=== PATIENT | female | born 1960 | race Caucasian/White ===

== ENCOUNTER → 2017-10-08 | Outpatient (CLI) | payer OTHER | LOC: CAT 07:18 | DX: J98.11 Atelectasis (principal); R91.8 Other nonspecific abnormal finding of lung field; Z90.49 Acquired absence of other specified parts of digestive tract ==

== ENCOUNTER → 2018-05-04 | Outpatient (CLI) | payer OTHER | LOC: CAT 08:00 | DX: J98.11 Atelectasis (principal); R91.8 Other nonspecific abnormal finding of lung field; R91.1 Solitary pulmonary nodule ==

== ENCOUNTER → 2018-09-09 | Outpatient (CLI) | payer OTHER | LOC: RAD 11:11 | DX: Z12.31 Encounter for screening mammogram for malignant neoplasm of breast (principal) ==

== ENCOUNTER → 2020-11-30 | Outpatient (CLI) | payer OTHER ==
[~2020-11-30] MED LIST: COQ-10100 MG PO; DIAZEPAM 5 MG5 M1 PO; K2-4545 MCG PO; TIROSINT88 MCG PO; TURMERIC500 M2 PO; VALTREX 500 MG500 M1 PO; VITAMIN D3250 MC2 PO; ZYRTEC10 M5 PO
== END ==
LOC: LAB 08:36
PROVIDERS: ATTEND Specialist
DX: Z01.812 Encounter for preprocedural laboratory examination (principal); Z20.822 Contact with and (suspected) exposure to COVID-19

== ENCOUNTER → 2020-12-05 | Outpatient (CLI) | payer OTHER ==
[~2020-12-05] VITALS: Ht 154.9 cm; Wt 89.4 kg
--- NOTE | 2020-12-10 12:50 | P ---
[facility] [place] [address] PROCEDURE REPORT Name: ADA SANCHEZ Room #: REG KEANU Jimenez#: [id number] Admission: 12/05/20 Attend Phys: Brayan Powers Discharge: Date of : 60 Report #: [id number] THIS REPORT FOR: cc: Mikhail Vargas,Mikhail Aguirre,Brayan Kim MD ~ DATE OF SERVICE: 12/05/2020 PROCEDURE PERFORMED: Colonoscopy with biopsies. HISTORY OF PRESENT ILLNESS: The patient is a 60-year-old female who presents today for routine screening colonoscopy, last one approximately 10 years ago and reportedly negative. She denies any symptoms. No family history of colon cancer. DESCRIPTION OF PROCEDURE: The risks and benefits of the procedure were explained to the patient, those risks including but not limited to bleeding, perforation and the risk of sedation. She understood these risks and gave informed consent. Sedation was given using propofol per anesthesia. Next, a digital rectal exam was initially performed, which was normal. Next, using a standard Olympus colonoscope, the scope was placed in the patient's anus and advanced under direct vision into the sigmoid colon, which was very tortuous. I was not able to pass a standard Olympus scope through this area; therefore, this was removed and a pediatric scope was then used. I was able to advance the pediatric scope without difficulty to the cecum. The overall prep was excellent. The cecum and ileocecal valve were normal in appearance. The transverse colon was normal. In the descending colon, there was a 4 mm sessile polyp. This was removed with cold forceps, otherwise normal. Multiple diverticula were noted in the sigmoid colon, no evidence of inflammation, otherwise normal. The rectal mucosa was normal. On retroflexion, no abnormalities were noted. The scope was then withdrawn and the procedure terminated. The patient tolerated the procedure well. IMPRESSION: 1. Small colonic polyp. 2. Sigmoid diverticulosis. 3. Otherwise, normal colonoscopy. RECOMMENDATIONS: 1. Await biopsy results. 2. If polyp is hyperplastic, repeat in 10 years; if adenomatous polyp, repeat in [address] [address] PROCEDURE REPORT Name: ADA SANCHEZ Room #: REG [facility] Tony#: [id number] Admission: 12/05/20 Attend Phys: Brayan Powers Discharge: Date of : 60 Report #: [id number] Thank you for allowing me to participate in her care. <ELECTRONICALLY SIGNED> By: Brayan Smith MD 12/10/20 1250 1058 1201 Brayan Smith MD /nt
--- NOTE | 2020-12-10 18:31 | PATH ---
[facility] [address] [place] [address] PATHOLOGY RPT PROCEDURE Name: CARMEN RAMIREZ Room #: REG [facility] M.R.#: [id number] Admission: 12/05/20 Date of : 60 Discharge: Report #: [id number] Path Case #: [id number] [facility] Accession Number: [id number] . 01 Material submitted: . colon - DESCENDING COLON POLYP. Modifiers: descending . 01 Clinical history: . SCREENING, COLON CANCER COLON POLYP, DIVERTICULOSIS . 02 Diagnosis: Polyp, descending colon polyp, endoscopic biopsy: - Hyperplastic polyp. - Negative for dysplasia. (IUV:academic affairs assistant; 12/10/2020) MBR 12/10/2020 1220 Local . 02 Electronically signed: . Patti Cantu MD, Pathologist NPI- [id number] . 01 Gross description: . The specimen is received in formalin, labeled "Carmen Ramirez, biopsy descending colon polyp". Received are two segments of pale moffett tissue measuring 0.3 cm each in maximum dimensions. The specimen is submitted entirely in cassette A1. (CAA; 12/07/2020) QAC/QAC 12/07/2020 1619 Local . 02 Pathologist provided ICD-10: K63.5 . 02 CPT . 674017 Specimen Comment: A courtesy copy of this report has been sent to [phone] Specimen Comment: [phone] Specimen Comment: Report sent to / Performed at: [address] [facility], [place], [place] [id number] MD Erich Raines MD Phone: [phone] Performed at: [address] [id number] MD Patti Cantu MD Phone: [phone]
== END | disposition home or self-care (01) ==
LOC: GI
PROVIDERS: ATTEND Specialist
DX: Z12.11 Encounter for screening for malignant neoplasm of colon (principal); K63.5 Polyp of colon; K57.30 Diverticulosis of large intestine without perforation or abscess without bleeding; E03.9 Hypothyroidism, unspecified; F41.9 Anxiety disorder, unspecified; G47.30 Sleep apnea, unspecified; Z98.890 Other specified postprocedural states; Z79.899 Other long term (current) drug therapy; Z87.891 Personal history of nicotine dependence; Z90.710 Acquired absence of both cervix and uterus; Z91.041 Radiographic dye allergy status; Z88.8 Allergy status to other drugs, medicaments and biological substances; Z20.822 Contact with and (suspected) exposure to COVID-19
CPT/HCPCS: 62110; 62900